=== PATIENT | male | born 1985 | race Caucasian/White ===

== ENCOUNTER 2020-06-28 17:59 | Emergency (ER) | payer BC ==
[~2020-06-28] VITALS: Ht 182.9 cm; Wt 104.3 kg
[2020-06-28] MEDS ORDERED: DOXYCYCLINE HY100 MG PO (22:21)
[2020-06-28] MEDS ORDERED: HYDROCODON-ACE1 EA10 PO (22:22)
== END 2020-06-28 22:49 | disposition home or self-care (01) ==
LOC: ED 17:59
DX: L03.115 Cellulitis of right lower limb (principal); I10 Essential (primary) hypertension; F17.200 Nicotine dependence, unspecified, uncomplicated
CPT/HCPCS: 73590; 85025; 85651; 93971; 99284-25

== ENCOUNTER 2020-08-12 22:22 | Emergency (ER) | payer BC ==
[~2020-08-12] VITALS: Ht 182.9 cm; Wt 102.0 kg
[~2020-08-12 22:22] MED LIST: DOXYCYCLINE HY100 MG PO; HYDROCODON-ACE1 EA10 PO
[2020-08-12] MEDS ORDERED: PERCOCET 5-3251 EACH PO (23:57)
[2020-08-12] MEDS ORDERED: FLOMAX0.4 MG PO (23:58)
== END 2020-08-13 00:15 | disposition home or self-care (01) ==
LOC: ED 22:22
DX: N13.2 Hydronephrosis with renal and ureteral calculous obstruction (principal); I10 Essential (primary) hypertension; F17.200 Nicotine dependence, unspecified, uncomplicated
CPT/HCPCS: 74176; 80053; 81001; 85025; 96374; 96375; 99284-25; J1170; J1885; J2405

== ENCOUNTER 2020-10-11 21:13 | Emergency (ER) | payer BC ==
[~2020-10-11] VITALS: Ht 182.9 cm; Wt 102.0 kg
[~2020-10-11 21:13] MED LIST changes: +FLOMAX0.4 MG PO; +PERCOCET 5-3251 EACH PO
--- OUTSIDE RECORDS SUMMARY | 2020-10-11 21:16 | XMS ---
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 EHigin[facility] VISIT COUNT (12 MO.) 3 [facility] Joiner TOTAL 3 NOTE: Visits indicate total known visits. ED/UCC VISIT TRACKING (12 MO.) 10/11/2020 21:14 [facility] TYPE: Emergency COMPLAINT: - BLOOD IN URINE,ABDOMINAL PAIN 08/12/2020 22:22 [facility] TYPE: Emergency COMPLAINT: - TESTICULAR PAIN DIAGNOSES: - Essential (primary) hypertension - Nicotine dependence, unspecified, uncomplicated - Right testicular pain - Hydronephrosis with renal and ureteral calculous obstruction 06/28/2020 17:59 [facility] TYPE: Emergency COMPLAINT: - R LEG SWOLLEN/NO INJ DIAGNOSES: - Nicotine dependence, unspecified, uncomplicated - Essential (primary) hypertension - Cellulitis of right lower limb INPATIENT VISIT TRACKING (12 MO.) No inpatient visits to display in this time frame [email or web address]
[2020-10-11] MEDS ORDERED: LISINOPRIL10 MG PO (22:05)
[2020-10-11] MEDS ORDERED: PERCOCET 5-3251 EACH PO (23:38)
== END 2020-10-12 00:20 | disposition home or self-care (01) ==
LOC: ED 21:13
DX: N23 Unspecified renal colic (principal); I10 Essential (primary) hypertension; F17.200 Nicotine dependence, unspecified, uncomplicated; Z79.899 Other long term (current) drug therapy
CPT/HCPCS: 51798; 80053; 81001; 85025; 99284-25

== ENCOUNTER 2022-05-10 05:41 | Emergency (ER) | payer BC, OTHER ==
[~2022-05-10] VITALS: Ht 182.9 cm; Wt 104.3 kg
[~2022-05-10 05:41] MED LIST changes: +LISINOPRIL10 MG PO
[2022-05-10] MEDS ORDERED: AMOXICILLIN500 MG PO (06:09)
== END 2022-05-10 07:15 | disposition home or self-care (01) ==
LOC: ED 05:41
DX: J02.8 Acute pharyngitis due to other specified organisms (principal); B97.89 Other viral agents as the cause of diseases classified elsewhere; I10 Essential (primary) hypertension; F17.200 Nicotine dependence, unspecified, uncomplicated; Z79.899 Other long term (current) drug therapy
CPT/HCPCS: 87081; 87880; 96372; 99283; J1885